=== PATIENT | male | born 1945 | race Caucasian/White ===

== ENCOUNTER 2022-09-08 10:25 | Inpatient (IN) | payer OTHER, MEDICAID ==
[~2022-09-08] VITALS: Ht 172.7 cm; Wt 90.7 kg
--- NOTE | 2022-09-08 11:00 | NUR ---
ER at bedside examining patient.
[2022-09-08 11:06] VITALS: BP_SYST 155
[2022-09-08 11:20] LABS: BASOPHILS % (AUTO) 0.4 % (0.0-2.0); EOSINOPHILS # (AUTO) 0.1 K/uL (0.0-0.4); EOSINOPHILS % (AUTO) 1.8 % (0.0-4.0); HEMATOCRIT 41.7 % (36-54); HEMOGLOBIN 13.7 g/dL (14.0-18.0); LYMPHOCYTES # (AUTO) 1.2 K/uL (1.0-5.5); MEAN CORPUSCULAR HEMOGLOBIN 29 pg (27-31); MEAN CORPUSCULAR HGB CONC 33 % (32-36); MEAN CORPUSCULAR VOLUME 89 fL (79.0-98.0); MONOCYTES # (AUTO) 0.4 K/uL (0.0-1.0); MONOCYTES % (AUTO) 7.4 % (1.7-9.3); NEUTROPHILS # (AUTO) 3.9 K/uL (1.8-7.7); NEUTROPHILS % (AUTO) 69.4 % (40.0-70.0); PLATELET COUNT (AUTO) 153 K/uL (130-430); RED BLOOD CELL COUNT(AUTO) 4.67 MIL/uL (4.2-6.2); RED CELL DISTRIBUTION WIDTH 13.9 % (9.0-15.0); WHITE BLOOD COUNT (AUTO) 5.6 K/uL (4.8-10.8)
--- NOTE | 2022-09-08 11:30 | NUR ---
Pt bib BLS from [facility] stated Full treatment. Pt with history of Dementia, BPH, HTN, hyperlipidemia and vit D deficiency. NKA. Pt presents to the ER with bilateral lower extremities. redness, drainage and warmth
[2022-09-08 11:33] LABS: ANION GAP 8 (5-15); CALCIUM 8.6 mg/dL (8.4-11.0); CHLORIDE 103 mmol/L (98-107); CREATININE 0.82 mg/dL (0.55-1.30); GLUCOSE 103 mg/dL (70-99); UREA NITROGEN, BLOOD 18 mg/dL (8-21)
[2022-09-08 11:39] LABS: ALANINE AMINOTRANSFERASE 16 U/L (12-78); ALBUMIN 3.3 g/dL (3.4-4.8); ASPARTATE AMINOTRANSFERASE 14 U/L (10-37); TOTAL BILIRUBIN 0.4 mg/dL (0.0-1.0)
--- NOTE | 2022-09-08 12:55 | NUR ---
Admit bed requested Patient will be admitted to care of . Admitted to tele unit. Diagnosis chf exascerbation and cellulitis. Inpatient (Yes or No) yes Observation (Yes or No) no Orientation concerns or request close to nursing station (Yes or No) no Covid Status pending On vent or bipap no Isolation requirements no Needs a sitter no From Home (Yes or if No enter name of facility) facility: [facility] Requires Dialysis (Yes or No) no Med Rec Completed (Yes of No) pending.
--- NOTE | 2022-09-08 13:56 | NUR ---
# 20 gauge angiocath placed to left hand. Use of asceptic technique. Opsite placed over site. Blood return noted. Blood for lab drawn from site. Flushed with 10 cc of normal saline. No evidence of infiltration noted. Patient tolerated well.
[2022-09-08] MEDS: FUROSEMIDE 40 MG/4 ML VIAL IVP ONE ×2 (14:11→14:13)
--- NOTE | 2022-09-08 14:30 | NUR ---
Pt placed in gown, soiled clothing removed, and cleansed and dried. Pt without complaint
--- NOTE | 2022-09-08 14:49 | NUR ---
Deputy Assessor bedside collecting blood.
--- NOTE | 2022-09-08 14:51 | NUR ---
Pt in positioned comfort with legs elevated, no drainage, red erythema and warm bilateral lower extremities. Pt is aaox1 with confusion and communication barrier.
--- NOTE | 2022-09-08 17:24 | NUR ---
Patient will be admitted to care of [facility]. Admitted to tele unit. Will go to room 132a. Belongings list completed. Complete and up to date summary report printed. SBAR report to be given at bedside with opportunity for questions. Report given to DAVID Garza.
[2022-09-08] MEDS ORDERED: INSULIN REGULAR, HUMAN 100 UNITS/ML, 3 ML VIAL (humuLIN R) SUBCUT PRN (17:45)
[2022-09-08] MEDS ORDERED: DEXTROSE 50% JECT 50 ML DISP.SYRIN IVP PRN (17:45)
[2022-09-08] MEDS ORDERED: cloNIDine HCL 0.2 MG TABLET PO PRN (17:45)
[2022-09-08] MEDS ORDERED: QUEtiapine FUMARATE 25 MG TABLET PO SCH (18:00)
[2022-09-08] MEDS ORDERED: ASPIRIN 81 MG TABLET(ECOTRIN) PO ONE (18:00)
[2022-09-08] MEDS ORDERED: TAMSULOSIN HCL 0.4 MG CAP PO ONE (18:00)
[2022-09-08 18:18] VITALS: BP_SYST 147
[2022-09-08] MEDS: AMPICILLIN SODIUM/SULBACTAM NA 3 GM in NS 100 ML IV SCH (18:47)
--- NOTE | 2022-09-08 19:00 | NUR ---
Note Pt arrived to floor from ED at 1724. Pt was assisted from gurney to bed in room. Pt was oriented to room and nursing routines and procedures. Pt confused and pulls at tele unit and gown off. Pt next to nurses' station for close observation for needs and care. Pt's IV in left hand 22g'. Pt incontinent. Dr Orozco came to floor at 1730 and went through medical records from [facility]. Admission assessment completed from medical records as pt unable to answer questions. Pt sat up in bed and ate his dinner. Pt's bed in low position and bed alarm on. Call light within reach.
[2022-09-08 20:00] VITALS: BP_SYST 135
[2022-09-08] MEDS: ENOXAPARIN SODIUM 40 MG/0.4 ML SYRINGE SUBCUT SCH (22:11)
[2022-09-08] MEDS: SIMVASTATIN 20 MG TABLET PO SCH (22:11)
[2022-09-09] MEDS: AMPICILLIN SODIUM/SULBACTAM NA 3 GM in NS 100 ML IV SCH ×2 (00:10→05:48)
[2022-09-09 01:34] VITALS: BP_SYST 126
[2022-09-09 05:06] LABS: BASOPHILS % (AUTO) 0.7 % (0.0-2.0); EOSINOPHILS # (AUTO) 0.1 K/uL (0.0-0.4); HEMATOCRIT 41.3 % (36-54); HEMOGLOBIN 13.8 g/dL (14.0-18.0); LYMPHOCYTES # (AUTO) 1.2 K/uL (1.0-5.5); LYMPHOCYTES % (AUTO) 23.2 % (20.5-51.5); MEAN CORPUSCULAR HEMOGLOBIN 29 pg (27-31); MEAN CORPUSCULAR HGB CONC 34 % (32-36); MEAN CORPUSCULAR VOLUME 87 fL (79.0-98.0); MONOCYTES # (AUTO) 0.5 K/uL (0.0-1.0); NEUTROPHILS # (AUTO) 3.4 K/uL (1.8-7.7); NEUTROPHILS % (AUTO) 65.1 % (40.0-70.0); PLATELET COUNT (AUTO) 148 K/uL (130-430); RED BLOOD CELL COUNT(AUTO) 4.76 MIL/uL (4.2-6.2); WHITE BLOOD COUNT (AUTO) 5.3 K/uL (4.8-10.8)
[2022-09-09 05:25] LABS: ANION GAP 6 (5-15); CALCIUM 8.3 mg/dL (8.4-11.0); CHLORIDE 106 mmol/L (98-107); CREATININE 0.82 mg/dL (0.55-1.30); GLUCOSE 106 mg/dL (70-99); UREA NITROGEN, BLOOD 18 mg/dL (8-21)
[2022-09-09 05:37] LABS: ALANINE AMINOTRANSFERASE 14 U/L (12-78); ASPARTATE AMINOTRANSFERASE 16 U/L (10-37); CHOLESTEROL 132 mg/dL (<200); FREE T4 (FREE THYROXINE) 0.8 ng/dL (0.6-1.6); HDL CHOLESTEROL 72 mg/dL (>45); THYROID STIMULATING HORMONE 1.29 uIu/mL (0.34-4.82); TOTAL BILIRUBIN 0.5 mg/dL (0.0-1.0); TRIGLYCERIDES 48 mg/dL (30-150)
[2022-09-09 05:57] LABS: INR 1.1 (0.80-1.20); PROTHROMBIN TIME 11.2 SECS (9.5-12.5)
[2022-09-09 08:00] VITALS: BP_SYST 125
[2022-09-09] MEDS ORDERED: FUROSEMIDE 20 MG/2 ML VIAL IVP SCH (09:00)
[2022-09-09] MEDS: TAMSULOSIN HCL 0.4 MG CAP PO SCH (10:14)
[2022-09-09] MEDS: ASPIRIN 81 MG TABLET(ECOTRIN) PO SCH (10:15)
[2022-09-09] MEDS: FINASTERIDE 5 MG TABLET (PROSCAR) PO SCH (10:15)
[2022-09-09] MEDS: lisinopriL 5 MG TABLET PO SCH (10:15)
[2022-09-09] MEDS ORDERED: DOXYCYCLINE HYCLATE 100 MG CAPSULE PO ONE (12:00)
[2022-09-09 12:13] VITALS: BP_SYST 101
[2022-09-09 16:55] VITALS: BP_SYST 117
[2022-09-09] MEDS ORDERED: QUEtiapine FUMARATE 100 MG TABLET PO SCH (18:00)
[2022-09-09 20:00] VITALS: BP_SYST 91
[2022-09-09] MEDS: SIMVASTATIN 20 MG TABLET PO SCH (22:46)
[2022-09-09] MEDS: DOXYCYCLINE HYCLATE 100 MG CAPSULE PO SCH (22:47)
[2022-09-09] MEDS: ENOXAPARIN SODIUM 40 MG/0.4 ML SYRINGE SUBCUT SCH (22:47)
[2022-09-10 02:04] VITALS: BP_SYST 105
[2022-09-10 09:05] VITALS: BP_SYST 134
[2022-09-10] MEDS: DOXYCYCLINE HYCLATE 100 MG CAPSULE PO SCH (09:55)
[2022-09-10] MEDS: lisinopriL 5 MG TABLET PO SCH (09:56)
[2022-09-10] MEDS: FINASTERIDE 5 MG TABLET (PROSCAR) PO SCH (09:56)
[2022-09-10] MEDS: ASPIRIN 81 MG TABLET(ECOTRIN) PO SCH (09:56)
[2022-09-10] MEDS: TAMSULOSIN HCL 0.4 MG CAP PO SCH (09:57)
--- NOTE | 2022-09-10 11:10 | NUR ---
Referral for SNF placement sent to [facility]
[2022-09-10] MEDS ORDERED: LISI-209 PO (12:01)
[2022-09-10] MEDS ORDERED: FINA5TAB11 PO (12:01)
[2022-09-10] MEDS ORDERED: LOVI40 SUBCUT (12:01)
[2022-09-10] MEDS ORDERED: Aspirin Ec PO (12:01)
[2022-09-10] MEDS ORDERED: SIMV-43 PO (12:01)
[2022-09-10] MEDS ORDERED: DOXY100C5 PO (12:01)
[2022-09-10] MEDS ORDERED: SER100 PO (12:01)
[2022-09-10] MEDS ORDERED: TAMS0.4C96 PO (12:01)
[2022-09-10 12:06] LABS: FOLATE (FOLIC ACID) >20.0 ng/mL (>3.0)
[2022-09-10 12:30] VITALS: BP_SYST 106
--- NOTE | 2022-09-10 12:59 | NUR ---
>>>PT NOTES<<< PT EVAL COMPLETED. MAY DISCHARGE TO SNF ONCE CLEARED. PATIENT IS AT RISK FOR FALLS AND WILL BENEFIT FROM SKILLED PT SERVICES AT THE SNF.
--- NOTE | 2022-09-10 14:39 | NUR ---
Patient to DC to [facility]-Number for report [phone]. Transport by [facility] . Spoke to daughter who agreed to transfer.
[2022-09-10 16:24] VITALS: BP_SYST 117
[2022-09-10 17:12] VITALS: BP_SYST 117
--- NOTE | 2022-09-10 17:15 | NUR ---
DISCHARGED PATIENT TO [facility]IA [facility]. REPORT'S GIVEN TO GIULIANA. PATIENT'S A/O X1, WITH CONFUSION (PATIENT'S BASELINE), VERBALLY RESPONSIVE IN NO ACUTE DISTRESS. DAUGHTER CORNELIO MADE AWARE OF THE DISCHARGE TODAY. VSS, PATIENT DENIED ANY PAIN OR DISCOMFORT.
== END 2022-09-10 17:25 | DRG 603 ==
LOC: SED 10:25 → STU 12:55 → SMU 09-09 10:25
PROVIDERS: ADMIT Internal Medicine; ATTEND Internal Medicine
DX: L03.115 Cellulitis of right lower limb (principal); E44.1 Mild protein-calorie malnutrition; F23 Brief psychotic disorder; L03.116 Cellulitis of left lower limb; I10 Essential (primary) hypertension; F03.90 Unspecified dementia, unspecified severity, without behavioral disturbance, psychotic disturbance, mood disturbance, and anxiety; I25.10 Atherosclerotic heart disease of native coronary artery without angina pectoris; N40.0 Benign prostatic hyperplasia without lower urinary tract symptoms; R73.03 Prediabetes; E78.5 Hyperlipidemia, unspecified; D64.9 Anemia, unspecified; Z20.822 Contact with and (suspected) exposure to COVID-19; Z88.8 Allergy status to other drugs, medicaments and biological substances; Z79.899 Other long term (current) drug therapy; Z68.30 Body mass index [BMI] 30.0-30.9, adult
CPT/HCPCS: 36415; 71045; 80053; 80061; 82607; 82746; 83605; 83735; 83880; 84439; 84443; 84484; 85025; 85610-TC; 85730-TC; 87081; 93005; 93306; 93970; 99285; G0378; J0295; J1650; J1815; J1940